=== PATIENT | male | born 1960 | race Caucasian/White ===

== ENCOUNTER 2019-08-11 13:29 | Emergency (ER) | payer OTHER ==
[~2019-08-11] VITALS: Ht 177.8 cm; Wt 74.8 kg
[~2019-08-11 13:29] MED LIST: HYDACE5 PO; METPRE4DP PO
[2019-08-11 14:51] LABS: BASOPHILS ABSOLUTE AUTO 0.01 K/mm3 (0.00-0.23); BASOPHILS PERCENT AUTO 0 % (0-2); EOSINOPHILS ABSOLUTE AUTO 0.11 K/mm3 (0.00-0.68); EOSINOPHILS PERCENT AUTO 2 % (0-6); Hematocrit 40.2 % (37.0-53.0); Hemoglobin 13.8 g/dL (13.5-17.5); IMMATURE GRAN ABSOLUTE AUTO 0.02 K/mm3 (0.00-0.10); IMMATURE GRAN PERCENT AUTO 0 % (0-1); LYMPHOCYTES ABSOLUTE AUTO 1.26 K/mm3 (0.84-5.20); LYMPHOCYTES PERCENT AUTO 19 % (21-46); MONOCYTES ABSOLUTE AUTO 0.88 K/mm3 (0.16-1.47); MONOCYTES PERCENT AUTO 13 % (4-13); Mean Corpuscular HGB 32.4 pg (26.0-34.0); Mean Corpuscular HGB Conc 34.3 g/dL (31.5-36.5); Mean Corpuscular Volume 94 fL (80-100); Mean Platelet Volume 10.7 fL (9.1-12.4); NEUTROPHILS ABSOLUTE AUTO 4.37 K/mm3 (1.96-9.15); NEUTROPHILS PERCENT AUTO 66 % (41-73); Platelet Count 218 K/mm3 (150-400); RDW Coefficient Variation 15.2 % (11.7-14.2); RDW Standard Deviation 52.4 fL (35.1-46.3); Red Blood Cell Count 4.26 M/mm3 (4.30-5.90); White Blood Cell Count 6.65 K/mm3 (4.00-11.30)
[2019-08-11 15:15] LABS: Alanine Aminotransfer (ALT/SGP 51 U/L (12-78); Albumin, Blood 3.2 g/dL (3.4-5.0); Alk Phos 107 U/L (50-136); Anion Gap 8 mmol/L (6-16); Aspartate Aminotrans (AST/SGOT 47 U/L (12-37); Bilirubin, Total 0.7 mg/dL (0.1-1.0); Blood Urea Nitrogen 13 mg/dL (8-24); Bun/Creatinine Ratio 16.5 (12.0-20.0); CO2, Blood 22 mmol/L (21-32); Calcium, Blood 8.5 mg/dL (8.5-10.1); Chloride, Blood 103 mmol/L (98-108); Creatinine, Blood 0.79 mg/dL (0.60-1.20); Globulin, Blood 3.3 g/dL (2.2-4.0); Glomerular Filtration Rate >60 (60-); Glucose, Blood 97 mg/dL (70-99); Sodium, Blood 133 mmol/L (136-145); Total Protein, Blood 6.5 g/dL (6.4-8.2); Troponin I 0.031 ng/mL (0.000-0.040)
[2019-08-11] MEDS ORDERED: Vibramycin100 MG PO (15:41)
[2019-08-11] MEDS ORDERED: Prednisone20 MG PO (15:41)
[2019-08-11] MEDS ORDERED: ALBU90OI INH (15:41)
== END 2019-08-11 15:47 | disposition home or self-care (01) ==
LOC: ER 13:29
PROVIDERS: Physician Assistant
DX: J18.9 Pneumonia, unspecified organism (principal); F17.200 Nicotine dependence, unspecified, uncomplicated
CPT/HCPCS: 71045; 80053; 83880; 84484; 85025; 93005; 93010; 94640; 99284-25; J7512

== ENCOUNTER 2019-08-21 15:45 | Inpatient (IN) | payer OTHER ==
[~2019-08-21] VITALS: Ht 177.8 cm; Wt 75.3 kg
[~2019-08-21 15:45] MED LIST changes: +ALBU90OI INH; +Prednisone20 MG PO; +Vibramycin100 MG PO
[2019-08-21 16:24] LABS: BASOPHILS ABSOLUTE AUTO 0.03 K/mm3 (0.00-0.23); BASOPHILS PERCENT AUTO 0 % (0-2); EOSINOPHILS ABSOLUTE AUTO 0.15 K/mm3 (0.00-0.68); EOSINOPHILS PERCENT AUTO 2 % (0-6); Hematocrit 45.2 % (37.0-53.0); Hemoglobin 15.1 g/dL (13.5-17.5); IMMATURE GRAN ABSOLUTE AUTO 0.05 K/mm3 (0.00-0.10); IMMATURE GRAN PERCENT AUTO 1 % (0-1); LYMPHOCYTES ABSOLUTE AUTO 1.64 K/mm3 (0.84-5.20); LYMPHOCYTES PERCENT AUTO 20 % (21-46); MONOCYTES ABSOLUTE AUTO 1.13 K/mm3 (0.16-1.47); MONOCYTES PERCENT AUTO 14 % (4-13); Mean Corpuscular HGB 32.2 pg (26.0-34.0); Mean Corpuscular HGB Conc 33.4 g/dL (31.5-36.5); Mean Corpuscular Volume 96 fL (80-100); Mean Platelet Volume 10.7 fL (9.1-12.4); NEUTROPHILS ABSOLUTE AUTO 5.24 K/mm3 (1.96-9.15); NEUTROPHILS PERCENT AUTO 64 % (41-73); Platelet Count 205 K/mm3 (150-400); RDW Coefficient Variation 15.6 % (11.7-14.2); RDW Standard Deviation 55.3 fL (35.1-46.3); Red Blood Cell Count 4.69 M/mm3 (4.30-5.90); White Blood Cell Count 8.24 K/mm3 (4.00-11.30)
[2019-08-21 16:47] LABS: Troponin I 0.027 ng/mL (0.000-0.040)
[2019-08-21 16:48] LABS: Alanine Aminotransfer (ALT/SGP 165 U/L (12-78); Albumin, Blood 3.1 g/dL (3.4-5.0); Alk Phos 102 U/L (50-136); Anion Gap 9 mmol/L (6-16); Aspartate Aminotrans (AST/SGOT 111 U/L (12-37); Bilirubin, Total 0.9 mg/dL (0.1-1.0); Blood Urea Nitrogen 16 mg/dL (8-24); Bun/Creatinine Ratio 15.8 (12.0-20.0); CO2, Blood 22 mmol/L (21-32); Calcium, Blood 8.4 mg/dL (8.5-10.1); Chloride, Blood 100 mmol/L (98-108); Creatinine, Blood 1.01 mg/dL (0.60-1.20); Globulin, Blood 3.2 g/dL (2.2-4.0); Glomerular Filtration Rate >60 (60-); Glucose, Blood 96 mg/dL (70-99); Potassium, Blood 4.7 mmol/L (3.5-5.5); Sodium, Blood 131 mmol/L (136-145); Total Protein, Blood 6.3 g/dL (6.4-8.2)
[2019-08-21 16:48] LABS: PCO2 Arterial 26.7 mmHg (35-45); PO2 Arterial 60.2 mmHg (80-100); pH Blood Arterial 7.45 (7.35-7.45)
--- NOTE | 2019-08-22 05:15 | NUR ---
SHIFT SUMMARY PT HAS BEEN A&O, VSS, O2 SATS >93% ON 3L O2 VIA NC. PT STATES SOB HAS IMPROVED SINCE ADMISSION. HE ALSO STATES HE WAS ABLE TO VOID 2 FULL URINALS IN THE ER AFTER RECIEVING LASIX BUT IT WAS NOT DOCUMENTED. LESS THAN 400 ML'S OF URINE NOTED SINCE ARRIVAL. PT IS DRINKING FLUIDS AND TOLERATING PO INTAKE.AMIODORONE GTT INFUSING PER EMAR AT THIS TIME, PT CONVERTED TO SINUS RHYTHM @ APPROX 2330 & THEN BACK TO AFIB @ 0415. PT IS ASYMPTOMATIC. PT IS NEGATIVE FOR CIWA AT THIS TIME. WCTM, CALL LIGHT IN REACH.
[2019-08-22 08:40] LABS: BASOPHILS ABSOLUTE AUTO 0.02 K/mm3 (0.00-0.23); BASOPHILS PERCENT AUTO 0 % (0-2); EOSINOPHILS ABSOLUTE AUTO 0.13 K/mm3 (0.00-0.68); EOSINOPHILS PERCENT AUTO 2 % (0-6); Hematocrit 45.7 % (37.0-53.0); IMMATURE GRAN ABSOLUTE AUTO 0.02 K/mm3 (0.00-0.10); IMMATURE GRAN PERCENT AUTO 0 % (0-1); LYMPHOCYTES ABSOLUTE AUTO 1.45 K/mm3 (0.84-5.20); LYMPHOCYTES PERCENT AUTO 20 % (21-46); MONOCYTES ABSOLUTE AUTO 0.96 K/mm3 (0.16-1.47); MONOCYTES PERCENT AUTO 13 % (4-13); Mean Corpuscular HGB 31.7 pg (26.0-34.0); Mean Corpuscular HGB Conc 32.8 g/dL (31.5-36.5); Mean Corpuscular Volume 97 fL (80-100); Mean Platelet Volume 11.1 fL (9.1-12.4); NEUTROPHILS ABSOLUTE AUTO 4.82 K/mm3 (1.96-9.15); NEUTROPHILS PERCENT AUTO 65 % (41-73); Platelet Count 210 K/mm3 (150-400); RDW Coefficient Variation 15.5 % (11.7-14.2); RDW Standard Deviation 54.9 fL (35.1-46.3); Red Blood Cell Count 4.73 M/mm3 (4.30-5.90)
[2019-08-22 08:41] LABS: Alanine Aminotransfer (ALT/SGP 136 U/L (12-78); Albumin, Blood 2.9 g/dL (3.4-5.0); Albumin/Globulin Ratio 0.9 (0.8-1.8); Alk Phos 90 U/L (50-136); Anion Gap 9 mmol/L (6-16); Aspartate Aminotrans (AST/SGOT 75 U/L (12-37); Bilirubin, Total 0.7 mg/dL (0.1-1.0); Blood Urea Nitrogen 20 mg/dL (8-24); Bun/Creatinine Ratio 17.2 (12.0-20.0); CO2, Blood 26 mmol/L (21-32); Calcium, Blood 8.9 mg/dL (8.5-10.1); Chloride, Blood 100 mmol/L (98-108); Creatinine, Blood 1.16 mg/dL (0.60-1.20); Globulin, Blood 3.1 g/dL (2.2-4.0); Glomerular Filtration Rate >60 (60-); Glucose, Blood 103 mg/dL (70-99); Potassium, Blood 4.3 mmol/L (3.5-5.5); Sodium, Blood 135 mmol/L (136-145); Troponin I 0.118 ng/mL (0.000-0.040)
[2019-08-22 15:06] LABS: International Normalized Ratio 1.19; Prothrombin Time Results 12.6 Sec (9.7-11.5)
--- NOTE | 2019-08-22 18:36 | NUR ---
SHIFT NOTE PT HAS BEEN RESTING WELL BED T/O THE DAY. PT WITH SOME NOTED SOB, STS THAT HIS SOB HAS IMPROVED SINCE ARRIVAL. SPO2 MID 90s T/O THE SHIFT ON 3L VIA CANNULA. PT DENIED CP T/O THE DAY. DR URIOSTEGUI HAS BEEN IN FOR [facility] CONSENT FOR HEART CENTER IS SIGNED AND IN CHART. PT HAS BEEN REMOVED FROM IV AMIODORONE REPLACED WITH PO. LOVENOX REPLACED WITH HEPARIN DRIP
--- NOTE | 2019-08-23 06:24 | NUR ---
SHIFT SUMMARY PT RESTING IN ROOM COMFORTABLY AT THIS TIME. NO ACUTE CHANGES IN STATUS T/O NIGHT. PT SLEPT WELL. DENIED CP OR SOB. PT DID REPOPRT SOME DYSPNEA W/ EXERTION WHEN STANDING TO USE URINAL. RESP EVEN UNLABORED ON 3L NC W/ SATS >92%. HEPARING GTT INFUSING PER PHARMACY. PT DENIED ALL OTHER NEEDS. CALL LIGHT IN REACH.
[2019-08-23 07:04] LABS: BASOPHILS ABSOLUTE AUTO 0.02 K/mm3 (0.00-0.23); BASOPHILS PERCENT AUTO 0 % (0-2); EOSINOPHILS ABSOLUTE AUTO 0.13 K/mm3 (0.00-0.68); EOSINOPHILS PERCENT AUTO 1 % (0-6); Hematocrit 44.7 % (37.0-53.0); Hemoglobin 14.5 g/dL (13.5-17.5); IMMATURE GRAN ABSOLUTE AUTO 0.04 K/mm3 (0.00-0.10); IMMATURE GRAN PERCENT AUTO 0 % (0-1); LYMPHOCYTES PERCENT AUTO 13 % (21-46); MONOCYTES ABSOLUTE AUTO 1.21 K/mm3 (0.16-1.47); MONOCYTES PERCENT AUTO 13 % (4-13); Mean Corpuscular HGB 31.5 pg (26.0-34.0); Mean Corpuscular HGB Conc 32.4 g/dL (31.5-36.5); Mean Corpuscular Volume 97 fL (80-100); Mean Platelet Volume 11.1 fL (9.1-12.4); NEUTROPHILS PERCENT AUTO 73 % (41-73); Platelet Count 167 K/mm3 (150-400); RDW Coefficient Variation 15.7 % (11.7-14.2); RDW Standard Deviation 55.4 fL (35.1-46.3)
[2019-08-23 07:17] LABS: Alanine Aminotransfer (ALT/SGP 123 U/L (12-78); Albumin, Blood 2.7 g/dL (3.4-5.0); Albumin/Globulin Ratio 0.8 (0.8-1.8); Alk Phos 82 U/L (50-136); Anion Gap 9 mmol/L (6-16); Aspartate Aminotrans (AST/SGOT 58 U/L (12-37); Bilirubin, Total 0.7 mg/dL (0.1-1.0); Blood Urea Nitrogen 23 mg/dL (8-24); Bun/Creatinine Ratio 20.4 (12.0-20.0); CO2, Blood 26 mmol/L (21-32); Calcium, Blood 8.6 mg/dL (8.5-10.1); Chloride, Blood 100 mmol/L (98-108); Creatinine, Blood 1.13 mg/dL (0.60-1.20); Globulin, Blood 3.4 g/dL (2.2-4.0); Glomerular Filtration Rate >60 (60-); Glucose, Blood 107 mg/dL (70-99); Potassium, Blood 3.5 mmol/L (3.5-5.5); Sodium, Blood 135 mmol/L (136-145); Total Protein, Blood 6.1 g/dL (6.4-8.2)
--- NOTE | 2019-08-23 07:28 | NUR ---
ASSUMED PATIENT CARE. PATIENT RESTING COMFORTABLY IN BED, CONVERSING WITH NURSING STAFF. NO SIGNS OF ACUTE DISTRESS, WCTM.
--- NOTE | 2019-08-23 12:50 | NUR ---
PATIENT HAD TWO RUNS OF V TACH THIS AM, DR. MADDEN NOTIFIED.
--- NOTE | 2019-08-23 17:54 | NUR ---
PATIENT HAD TWO RUNS OF 8 BEAT V TACH AT BEGINNIG OF SHIFT. PATIENT COMPLAINED OF MILD CHEST TIGHTNESS IN UPPER L. QUADRANT. PATIENT WAS ABLE TO AMBULATE TO SHOWER TODAY, DID NOT COMPLAIN OF INCREASED SOB, BUT ENDORSED NEEDING THE O2, WHICH HE HAS RECIEVED VIA NASAL CANNULA AT 2 L. PATIENT REMAINED ON HEPARIN DRIP THIS SHIFT. COVID-19 TEST RESULTS PENDING. PLAN IS TO CONTINUE TO DIURESE PATIENT WITH IV LASIX, AND FOR ANGIO POSSIBLY TOMORROW.
--- NOTE | 2019-08-24 05:22 | NUR ---
SHIFT SUMMARY PT SLEEPING IN ROOM COMFORTABLY AT THIS TIME. NO ACUTE CHANGES IN STATUS T/O NIGHT. PT SLEPT WELL DENIED NEEDS. RESP EVEN UNLABORED ON 2L NC W/ SATS >92%. PT WAS HYPOTENSIVE DURING NIGHT, W/ MAP REMAINED ABOVE 50. PT HAS BEEN DIURESING IN PPREARATION FOR ANGIO. PT WAS MADE NPO AT MIDNIGHT FOR POSSIBLE ANGIO THIS AM. DENIED OTHER NEEDS. CALL LIGHT IN REACH.
[2019-08-24 05:35] LABS: BASOPHILS ABSOLUTE AUTO 0.02 K/mm3 (0.00-0.23); BASOPHILS PERCENT AUTO 0 % (0-2); EOSINOPHILS ABSOLUTE AUTO 0.16 K/mm3 (0.00-0.68); EOSINOPHILS PERCENT AUTO 2 % (0-6); Hematocrit 41.9 % (37.0-53.0); Hemoglobin 13.9 g/dL (13.5-17.5); IMMATURE GRAN ABSOLUTE AUTO 0.03 K/mm3 (0.00-0.10); IMMATURE GRAN PERCENT AUTO 0 % (0-1); LYMPHOCYTES ABSOLUTE AUTO 1.26 K/mm3 (0.84-5.20); LYMPHOCYTES PERCENT AUTO 18 % (21-46); MONOCYTES ABSOLUTE AUTO 1.02 K/mm3 (0.16-1.47); MONOCYTES PERCENT AUTO 14 % (4-13); Mean Corpuscular HGB 31.8 pg (26.0-34.0); Mean Corpuscular HGB Conc 33.2 g/dL (31.5-36.5); Mean Corpuscular Volume 96 fL (80-100); Mean Platelet Volume 11.1 fL (9.1-12.4); NEUTROPHILS ABSOLUTE AUTO 4.65 K/mm3 (1.96-9.15); NEUTROPHILS PERCENT AUTO 65 % (41-73); Platelet Count 159 K/mm3 (150-400); RDW Coefficient Variation 15.4 % (11.7-14.2); RDW Standard Deviation 54.6 fL (35.1-46.3); Red Blood Cell Count 4.37 M/mm3 (4.30-5.90); White Blood Cell Count 7.14 K/mm3 (4.00-11.30)
[2019-08-24 05:53] LABS: Alanine Aminotransfer (ALT/SGP 92 U/L (12-78); Albumin, Blood 2.6 g/dL (3.4-5.0); Albumin/Globulin Ratio 0.8 (0.8-1.8); Alk Phos 69 U/L (50-136); Anion Gap 7 mmol/L (6-16); Aspartate Aminotrans (AST/SGOT 39 U/L (12-37); Bilirubin, Total 0.7 mg/dL (0.1-1.0); Blood Urea Nitrogen 20 mg/dL (8-24); Bun/Creatinine Ratio 20.2 (12.0-20.0); CO2, Blood 28 mmol/L (21-32); Calcium, Blood 8.5 mg/dL (8.5-10.1); Chloride, Blood 98 mmol/L (98-108); Creatinine, Blood 0.99 mg/dL (0.60-1.20); Globulin, Blood 3.1 g/dL (2.2-4.0); Glomerular Filtration Rate >60 (60-); Glucose, Blood 106 mg/dL (70-99); Potassium, Blood 3.3 mmol/L (3.5-5.5); Sodium, Blood 133 mmol/L (136-145); Total Protein, Blood 5.7 g/dL (6.4-8.2)
--- NOTE | 2019-08-24 13:57 | NUR ---
PCU DAYSHIFT NOTE PATIENT ALERT AND ORIENTED X4. INDEPENDENT IN ROOM. RESP E/U AT REST ON 2 LPM NC. PATIENT AMBULATES WITH STEADY GAIT TO BATHROOM. DENIES ANY PAIN T/O SHIFT. LUNG SOUNDS CLEAR WITH MILD EXP WHEEZE IN BASES. REMAINS NSR WITH NO CARDIAC EVENTS NOTED AT THIS TIME. COVID REMAINS PENDING. REPORTED TO KEYA Pace RN. CALL LIGHT W/I REACH.
--- NOTE | 2019-08-24 18:02 | NUR ---
SHIFT SUMMARY PT ASSESSMENT UNCHANGED SINCE REPORT FROM VENKATA BELL. PT A&OX 4. INDEPENDENT IN ROOM. CONTINUING TO DIUERSIS. DISCUSSED kathy URIOSTEGUI. PT HAS CRACKLES THROUGHOUT. STATES HE CANNOT LAY FLAT c SOB AND INCREASED COUGHING. O2 SATS >95% ON 1L. HEPARIN INFUSING AT 19 UNITS/KG/HR. PLAN FOR PROCEDURE TOMORROW, NPO AND HEPARIN D/C AFTER MIDNIGHT. WILL CONTINUE TO MONITOR UNTIL REPORT TO ONCOMING NURSE.
--- NOTE | 2019-08-25 00:05 | NUR ---
LYING IN LOW FOWLERS, RESTING WITH EYES CLOSED. VSS, HEPARIN GTT STOPPED PER MD ORDERS. PT IS NOW NPO FOR LHC IN AM. DENIES PAIN, DISCOMFORT, OR OTHER NEEDS AT THIS TIME. SAFETY MEASURES IN PLACE. WILL CONTINUE TO MONITOR.
[2019-08-25 04:31] LABS: BASOPHILS ABSOLUTE AUTO 0.03 K/mm3 (0.00-0.23); BASOPHILS PERCENT AUTO 0 % (0-2); EOSINOPHILS ABSOLUTE AUTO 0.15 K/mm3 (0.00-0.68); EOSINOPHILS PERCENT AUTO 2 % (0-6); Hematocrit 40.4 % (37.0-53.0); Hemoglobin 13.4 g/dL (13.5-17.5); IMMATURE GRAN ABSOLUTE AUTO 0.03 K/mm3 (0.00-0.10); IMMATURE GRAN PERCENT AUTO 0 % (0-1); LYMPHOCYTES ABSOLUTE AUTO 1.09 K/mm3 (0.84-5.20); LYMPHOCYTES PERCENT AUTO 16 % (21-46); MONOCYTES ABSOLUTE AUTO 0.89 K/mm3 (0.16-1.47); MONOCYTES PERCENT AUTO 13 % (4-13); Mean Corpuscular HGB Conc 33.2 g/dL (31.5-36.5); Mean Corpuscular Volume 96 fL (80-100); Mean Platelet Volume 11.4 fL (9.1-12.4); NEUTROPHILS ABSOLUTE AUTO 4.56 K/mm3 (1.96-9.15); NEUTROPHILS PERCENT AUTO 68 % (41-73); Platelet Count 156 K/mm3 (150-400); RDW Coefficient Variation 15.5 % (11.7-14.2); RDW Standard Deviation 55.5 fL (35.1-46.3); Red Blood Cell Count 4.19 M/mm3 (4.30-5.90); White Blood Cell Count 6.75 K/mm3 (4.00-11.30)
[2019-08-25 04:54] LABS: Alanine Aminotransfer (ALT/SGP 83 U/L (12-78); Albumin, Blood 2.7 g/dL (3.4-5.0); Albumin/Globulin Ratio 0.8 (0.8-1.8); Alk Phos 69 U/L (50-136); Anion Gap 7 mmol/L (6-16); Aspartate Aminotrans (AST/SGOT 33 U/L (12-37); Bilirubin, Total 0.5 mg/dL (0.1-1.0); Blood Urea Nitrogen 23 mg/dL (8-24); Bun/Creatinine Ratio 23.3 (12.0-20.0); CO2, Blood 28 mmol/L (21-32); Calcium, Blood 8.5 mg/dL (8.5-10.1); Chloride, Blood 96 mmol/L (98-108); Creatinine, Blood 0.99 mg/dL (0.60-1.20); Globulin, Blood 3.4 g/dL (2.2-4.0); Glomerular Filtration Rate >60 (60-); Glucose, Blood 106 mg/dL (70-99); Sodium, Blood 131 mmol/L (136-145); Total Protein, Blood 6.1 g/dL (6.4-8.2)
--- NOTE | 2019-08-25 07:30 | NUR ---
ASSUMED CARE AT 0730. RESTING IN HIGH FOWLERS IN BED. A/A/OX4. 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 VSS, WILL CONTINUE TO MONITOR.
[2019-08-25 13:39] LABS: Test Name COVID19
--- NOTE | 2019-08-25 17:50 | NUR ---
SHIFT SUMMARY: A/A/OX4 THROUGHOUT SHIFT, INDEPENDANT IN ROOM. 1L 02 VIA NC. TAKEN TO LEAD DATA ENTRY OPERATOR AT APPROX 1700, REMAINS IN LEAD DATA ENTRY OPERATOR AT THIS TIME.
--- NOTE | 2019-08-26 04:11 | NUR ---
SHIFT SUMMARY: PATIENT VERY INTENT ON GETTING SNACKS THIS SHIFT, FOOD AND WATER HELD SINCE 0320 FOR POSSIBLE ANDRES THIS AM. PATIENT SKIN C/D/I, VSS, MOVING WITH ONLY MINIMAL SBA. PATIENT REMAINS IN A SINUS RHYTHUM. PATIENT TR BAND FULLY RECOVERED AT APPROX 2300 WITH NO SIGN OF HEMATOMA OR BLEEDING. ON EVERY CHECK ALL SENSATIONS WERE INTACT, CAPILLARY REFILL < 3 SECONDS, PULSES STRONG AND SKIN COLOR WNL. PATIENT SLEPT WELL. BED LOW AND LOCKED, CALL LIGHT WITHIN REACH AND PATIENT MONITORED CLOSELY.
--- NOTE | 2019-08-26 09:00 | NUR ---
ANDRES CONSENT SIGNED. TIME OUT PERFORMED AT 0845. VS STABLE. BP CYCLED Q3MIN. 1MG OF VERSED AND 25MCG OF FENTANYL GIVEN AT APPROXIMATELY 0847. PROBE IN AT 0850 AND OUT AT 0859. PT TOLERATED PROCEDURE WELL.
[2019-08-26 09:45] LABS: Result NEGATIVE
[2019-08-26] MEDS ORDERED: Pacerone400 MG PO (12:20)
[2019-08-26] MEDS ORDERED: METO25ER PO (12:21)
[2019-08-26] MEDS ORDERED: ELIQUIS5 M2 PO (12:22)
[2019-08-26] MEDS ORDERED: Aspirin EC81 MG PO (12:22)
[2019-08-26] MEDS ORDERED: FURO20 PO (12:23)
[2019-08-26] MEDS ORDERED: SPIR25 PO (12:23)
[2019-08-26] MEDS ORDERED: LISI5 PO (12:23)
--- NOTE | 2019-08-26 14:25 | NUR ---
PCU DISCHARGE SUMMARY PATIENT REMAINED ALERT AND ORIENTED X4 T/O SHIFT. PATIENT DENIED ANY PAIN T/O SHIFT. ANDRES PERFORMED. PATIENT TO HAVE OUTPATIENT SURGERY FOR MITRAL VALVE REPAIR. PATIENT HAD HOME O2 EVALUATION COMPLETED AND REQUIRES OXYGEN - O2 SET UP VIA PORTABLE AND AT HIS HOME BY STUART MARQUES PER MARKETING AND COMMUNICATIONS OFFICER, ASHIA Chaudhari PATIENT LEFT UNIT VIA WHEELCHAIR HOME WITH FRIEND IN NO ACUTE DISTRESS. VERBALIZED UNDERSTANDING OF MEDICATIONS AND FOLLOW UP APPT WITH [facility]. BELONGINGS SENT WITH PATIENT.
== END 2019-08-26 14:12 | disposition home or self-care (01) | DRG 280 ==
LOC: ER 15:45 → ICUW 19:43 → PCU 19:43
PROVIDERS: Anesthesiology; Emergency Medicine; Internal Medicine; Physician Assistant; ADMIT Internal Medicine
PROC: 4A023N8 Measurement of Cardiac Sampling and Pressure, Bilateral, Percutaneous Approach (ICD-10-PCS; principal; 2019-08-25)
PROC: B2111ZZ Fluoroscopy of Multiple Coronary Arteries using Low Osmolar Contrast (ICD-10-PCS; 2019-08-25)
PROC: B240ZZ3 Ultrasonography of Single Coronary Artery, Intravascular (ICD-10-PCS; 2019-08-25)
DX: I11.0 Hypertensive heart disease with heart failure (principal); I21.4 Non-ST elevation (NSTEMI) myocardial infarction; J96.01 Acute respiratory failure with hypoxia; E87.6 Hypokalemia; I34.1 Nonrheumatic mitral (valve) prolapse; I34.0 Nonrheumatic mitral (valve) insufficiency; I27.22 Pulmonary hypertension due to left heart disease; I50.9 Heart failure, unspecified; F17.210 Nicotine dependence, cigarettes, uncomplicated; J44.9 Chronic obstructive pulmonary disease, unspecified; I25.10 Atherosclerotic heart disease of native coronary artery without angina pectoris; F10.20 Alcohol dependence, uncomplicated; I48.0 Paroxysmal atrial fibrillation
CPT/HCPCS: 36415; 36600; 71045; 76376; 76705; 80053; 82803; 82947; 83605; 83735; 83880; 84443; 84484; 85025; 85347; 85610; 85730; 86850; 86900; 86901; 87040; 92978; 93005; 93010; 93312; 93325; 93460; 93571; 94761; 94762; 96365; 96375; 99152; 99153; 99285-25; A9270; A9270-GY; C1753; C1769; C1887; C1894; J0282; J1644; J1650; J1940; J2250; J3010; J7030; J7060; Q9967; U0002; U0003

== ENCOUNTER 2019-08-29 11:02 | Inpatient (IN) | payer OTHER ==
[~2019-08-29] VITALS: Ht 177.8 cm; Wt 80.8 kg
[~2019-08-29 11:02] MED LIST changes: +Aspirin EC81 MG PO; +ELIQUIS5 M2 PO; +FURO20 PO; +LISI5 PO; +METO25ER PO; +Pacerone400 MG PO; +SPIR25 PO
[2019-08-29 11:42] LABS: BASOPHILS ABSOLUTE AUTO 0.03 K/mm3 (0.00-0.23); BASOPHILS PERCENT AUTO 0 % (0-2); EOSINOPHILS ABSOLUTE AUTO 0.13 K/mm3 (0.00-0.68); EOSINOPHILS PERCENT AUTO 2 % (0-6); Hematocrit 40.5 % (37.0-53.0); Hemoglobin 13.7 g/dL (13.5-17.5); IMMATURE GRAN ABSOLUTE AUTO 0.08 K/mm3 (0.00-0.10); IMMATURE GRAN PERCENT AUTO 1 % (0-1); LYMPHOCYTES ABSOLUTE AUTO 1.44 K/mm3 (0.84-5.20); LYMPHOCYTES PERCENT AUTO 17 % (21-46); MONOCYTES ABSOLUTE AUTO 0.96 K/mm3 (0.16-1.47); MONOCYTES PERCENT AUTO 11 % (4-13); Mean Corpuscular HGB 32.2 pg (26.0-34.0); Mean Corpuscular HGB Conc 33.8 g/dL (31.5-36.5); Mean Corpuscular Volume 95 fL (80-100); NEUTROPHILS ABSOLUTE AUTO 5.98 K/mm3 (1.96-9.15); NEUTROPHILS PERCENT AUTO 70 % (41-73); Platelet Count 198 K/mm3 (150-400); RDW Coefficient Variation 14.6 % (11.7-14.2); RDW Standard Deviation 51.1 fL (35.1-46.3); Red Blood Cell Count 4.26 M/mm3 (4.30-5.90); White Blood Cell Count 8.62 K/mm3 (4.00-11.30)
[2019-08-29 12:06] LABS: Albumin, Blood 2.9 g/dL (3.4-5.0); Albumin/Globulin Ratio 0.9 (0.8-1.8); Bun/Creatinine Ratio 32.6 (12.0-20.0); Calcium, Blood 8.5 mg/dL (8.5-10.1); Creatinine, Blood 1.38 mg/dL (0.60-1.20); Globulin, Blood 3.4 g/dL (2.2-4.0); Potassium, Blood 5.7 mmol/L (3.5-5.5); Total Protein, Blood 6.3 g/dL (6.4-8.2); Troponin I 0.043 ng/mL (0.000-0.040)
--- NOTE | 2019-08-29 17:00 | NUR ---
PT ARRIVED TO PCU VIA GURNEY FROM ED REPORT OBTAINED, PT ABLE TO STAND AND TRANSFER SELF TO BED, A/OX3, COOPERATIVE WITH CARE, FOLLOWS COMMANDS WELL, DENIES PAIN, BUT DOES REPORT SOB, REPORTS VOMITING FOR TWO DAYS, NO KEEPING ANYTHING DOWN, LUNGS ARE CLEAR IN UPPER CARCAMO, DIM IN BASES, RESP EVEN AND MILDLY LABORED, CURRENTLY ON 4 LITERS 02 VIA N/C, THIS IS HIS HOME 02 DOSE, OCC PRODUCTIVE COUGH OF WHITE SPUTUM, HE IS A SMOKER, BUT STATES HE HASN'T SMOKED IN TWO WEEKS, REPORTS THE SOB IS WORSE WITH EXERTION, HRR, TELE IN PLACE RUNNIG SR PER MONITOR, SEE STRIP, NO EDEMA NOTED, PPP+1, CAP REFILL >3SEC, VS STABLE AFEBRILE, IV SITE TO LF S.L. AT THIS TIME, IS RESISTANT TO FLUSH, AND IS STINGING, BTX4, ABD FLAT SOFT NONTENDER, VOIDS WITHOUT DIFF, SKIN C/W/D, MAEW, ANILA, ORIENTED TO ROOM LAYOUT, CALL SYSTEM, CALL LIGHT IN REACH.
--- NOTE | 2019-08-29 18:47 | NUR ---
IV TO LEFT FA WAS STINGING WHEN FLUSHED, THIS WAS REMOVED INTACT, 20G PLACED TO RIGHT FA, FLUSHES, WELL. NO ACUTE CHANGES IN PT. CALL LIGHT IN REACH.
--- NOTE | 2019-08-30 06:03 | NUR ---
PATIENT HAS BEEN ABLE TO SLEEP FOR SHORT PERIODS OF TIME, WAKES EASILY TO VERBAL STIM. PATIENT UP AT BEDSIDE TO VOID. BECOMES DYSPNIC WITH ANY EXERTION. PT CONT WITH NAUSEA, ABDOMINAL DISCOMFORT, NO VOMITNG. ZOFRAN IV GIVEN FOR NAUSEA THIS AM. NO ACUTE CHANGES. PT STATES THAT HE DOES FEEL BETTER THAT YESTERDAY. CALL LIGHT IN REACH.
[2019-08-30 06:08] LABS: BASOPHILS ABSOLUTE AUTO 0.03 K/mm3 (0.00-0.23); BASOPHILS PERCENT AUTO 0 % (0-2); EOSINOPHILS ABSOLUTE AUTO 0.21 K/mm3 (0.00-0.68); EOSINOPHILS PERCENT AUTO 3 % (0-6); Hematocrit 40.4 % (37.0-53.0); Hemoglobin 13.4 g/dL (13.5-17.5); IMMATURE GRAN ABSOLUTE AUTO 0.03 K/mm3 (0.00-0.10); IMMATURE GRAN PERCENT AUTO 0 % (0-1); LYMPHOCYTES ABSOLUTE AUTO 1.36 K/mm3 (0.84-5.20); LYMPHOCYTES PERCENT AUTO 19 % (21-46); MONOCYTES ABSOLUTE AUTO 0.88 K/mm3 (0.16-1.47); MONOCYTES PERCENT AUTO 12 % (4-13); Mean Corpuscular HGB 31.4 pg (26.0-34.0); Mean Corpuscular HGB Conc 33.2 g/dL (31.5-36.5); Mean Corpuscular Volume 95 fL (80-100); Mean Platelet Volume 11.2 fL (9.1-12.4); NEUTROPHILS ABSOLUTE AUTO 4.77 K/mm3 (1.96-9.15); NEUTROPHILS PERCENT AUTO 66 % (41-73); Platelet Count 202 K/mm3 (150-400); RDW Coefficient Variation 14.5 % (11.7-14.2); RDW Standard Deviation 51.1 fL (35.1-46.3); Red Blood Cell Count 4.27 M/mm3 (4.30-5.90); White Blood Cell Count 7.28 K/mm3 (4.00-11.30)
[2019-08-30 06:20] LABS: Albumin, Blood 2.8 g/dL (3.4-5.0); Albumin/Globulin Ratio 0.9 (0.8-1.8); Bilirubin, Total 0.6 mg/dL (0.1-1.0); Bun/Creatinine Ratio 29.6 (12.0-20.0); Calcium, Blood 7.9 mg/dL (8.5-10.1); Creatinine, Blood 1.35 mg/dL (0.60-1.20); Globulin, Blood 3.2 g/dL (2.2-4.0); Potassium, Blood 4.8 mmol/L (3.5-5.5); Troponin I 0.033 ng/mL (0.000-0.040)
--- NOTE | 2019-08-30 18:29 | NUR ---
SHIFT SUMMARY: PT IS ALERT AND ORIENTED ABLE TO MAKE NEEDS KNOWN. CONTINUES ON DIURESIS, LASIX 40MG BID, 1800 DOSE ON HOLD D/T LOW BP, PT'S BP AT 80'S-90'S PER SYSTOLIC LAST BP WAS 89/55, DR LI CALLED AND MADE AWARE AGREED TO HOLD LASIX TONIGHT, RECOMMEND TO GET A FOLLOW-UP CARDIOLOGY CONSULT IN AM IN REGARGDS TO TAVR PROCEDURE THAT NEEDS TO GET DONE MEGAN. PT STILL ON FLUID RESTRICTION 2L/DAY, NO IV FLUID RUNNING AT THIS TIME, ADEQUATE PO FLUID INTAKE PER RESTRICTION. PT STILL C/O NAUSEA X1 THIS AM, ZOFRAN GIVEN AND WAS EFFECTIVE. PT ASYMPTOMATIC FOR LOW BP, PT STATED HE STOOD UP AND WALK TO THE WINDOW WITHOUT ANY ISSUES, PT ALSO EDUCATE ABOUT SAFETY AND FALL PREVENTION. USES URINAL TO VOID. NO OTHER ISSUES REPORTED. WILL GIVE REPORT TO ONCOMING SHIFT.
--- NOTE | 2019-08-30 20:08 | NUR ---
PATIENT ALERT AND ENGAGED WITH CONVERSATION. O2 @ 4 L, NO SOB OR INCREASED WOB WHILE IN BED. STATES INCREASED PRESSURE IN ABDOMEN SINCE ABOUT 1900, DENIES NAUSEA. BP 84/54 WITH MAP 63. HR 64. CALL LIGHT IN REACH.
[2019-08-31 04:20] LABS: Calcium, Blood 8.1 mg/dL (8.5-10.1); Creatinine, Blood 1.58 mg/dL (0.60-1.20); Magnesium, Blood 2.5 mg/dL (1.6-2.4); Potassium, Blood 4.7 mmol/L (3.5-5.5)
--- NOTE | 2019-08-31 06:33 | NUR ---
PATIENT HAS TIMES WHERE HE IS HAVING MORE DISCOMFORT IN HIS ABDOMEN. THIS MORNING HE IS FEELING BETTER. HE DID GO FOR A SHORT WALK IN THE [place] WITH O2. NO ACUTE CHANGES THIS SHIFT. CALL LIGHT IN REACH.
--- NOTE | 2019-08-31 13:27 | NUR ---
PT WAS SEEN BY DR TEJADA TODAY FOR CARDIOLOGISTS FOLLOW-UP, PT TO CONTINUE DIURESIS OKAY TO HOLD OFF ON BLOOD PRESSURE MEDICATIONS DUE TO LOW BP, PT NAUSEA RELIEVED, NOW C/O ABDOMINAL GAS PAIN/PRESSURE AND DIFFICULTY HAVING A BOWEL MOVEMENT/PASSING FLATUS, ISSUE ADDRESSED TO PROVIDER NEW ORDER RECEIVED FOR [place] BID, PT ALSO TRIED PRUNE JUICE SMALL BOWEL REPORTED FOR THE SHIFT. LIVER AKILAH DONE DUE TO ELEVATED LFTS, AWAITING FOR RESULT. PT STILL HAS SOB WITH EXERTION 98% ON 4L OF 02. PT CONTINUES ON FLUID RESTRICTION 2L/DAY. NO OTHER COMPLAINS, ONGOING PLAN FOR TAVR PROCEDURE. WILL MONITOR
--- NOTE | 2019-08-31 18:34 | NUR ---
SHIFT SUMMARY: (SEE PREVIOUS NOTES) PT FINALLY HAD MEDIUM BM AFTER 2ND DOSE OF MOM, PT WAS SLIGHTLY RELIEVED FROM ABDOMINAL GAS PAIN/PRESSURE, PT STATED THAT HE MIGHT NEED TO GO MORE LATER HE IS STILL PASSING FLATUS. PT AMBULATED IN THE UNIT EARLIER TO PROMOTE GAS MOVEMENT, PT TOLERATED WELL. PT CURRENTLY RESTING IN BED CALL LIGHTS WITHIN REACH WILL MONITOR.
[2019-09-01 04:28] LABS: Alanine Aminotransfer (ALT/SGP 358 U/L (12-78); Albumin, Blood 2.8 g/dL (3.4-5.0); Albumin/Globulin Ratio 0.9 (0.8-1.8); Alk Phos 96 U/L (50-136); Anion Gap 8 mmol/L (6-16); Aspartate Aminotrans (AST/SGOT 136 U/L (12-37); Bilirubin, Total 0.6 mg/dL (0.1-1.0); Blood Urea Nitrogen 35 mg/dL (8-24); Bun/Creatinine Ratio 32.4 (12.0-20.0); CO2, Blood 26 mmol/L (21-32); Calcium, Blood 7.8 mg/dL (8.5-10.1); Chloride, Blood 96 mmol/L (98-108); Creatinine, Blood 1.08 mg/dL (0.60-1.20); Globulin, Blood 3.2 g/dL (2.2-4.0); Glomerular Filtration Rate >60 (60-); Glucose, Blood 115 mg/dL (70-99); Sodium, Blood 130 mmol/L (136-145)
--- NOTE | 2019-09-01 06:40 | NUR ---
Shift Summary VSS, little sleep tonight, independant to bathroom for BM or up at bedside for urinal use. Fluid restriction in place. no changes to oxygen demand. 4L NC. VSS. No acute changes overnight, no changes from initial assessment. Will continue to monitor.
[2019-09-01 07:08] LABS: HBSAG SCREEN Negative (Negative); HEP A AB, IGM Negative (Negative); HEP B CORE AB, IGM Negative (Negative); HEP C VIRUS AB <0.1 (0.0-0.9)
--- NOTE | 2019-09-01 11:04 | NUR ---
UPDATE PT ALERT AND ORIENTED. VS STABLE. O2 SATS REMAIN ABOVE 90% 4L NC. BP STABLE. HR NSR. PT DENIES ANY PAIN. DR. SALDANA IN [facility] PLANS TO TRANSFER TO MEDICAL FLOOR. REPORT CALLED TO MEDICAL FLOOR RN. PT TO BE TAKEN UP BY .
--- NOTE | 2019-09-01 19:15 | NUR ---
SHIFT SUMMARY: PATIENT XFR FROM PCU-05 THIS SHIFT. PT A&O; CALM AND COOPERATIVE WITH CARE; INDEPENDENT IN ROOM. TELE IN PLACE; SR @ 72 PER MINING SUPPORT WORKER. FLUID RESTRICTION: 2000ML/DAY; PT COMPLIANT. IV DIURESIS CONTINUING. EXPECTED D/C HOME 09/01. REPORT GIVEN TO ONCOMING RN.
--- NOTE | 2019-09-02 04:53 | NUR ---
SHIFT SUMMARY ADMITTED FOR CHF. FULL CODE. HOPEFUL FOR DC TODAY OR TOMORROW. MITRAL VALVE TO BE REPLACED AT [facility] August OR . HE IS INDEPENDENT IN ROOM, A&O X4, ON A CARDIAC DIET, 2000 ML/DAY FLUID RESTRICTION.
[2019-09-02 05:44] LABS: Anion Gap 8 mmol/L (6-16); Blood Urea Nitrogen 29 mg/dL (8-24); Bun/Creatinine Ratio 24.2 (12.0-20.0); CO2, Blood 27 mmol/L (21-32); Calcium, Blood 7.8 mg/dL (8.5-10.1); Chloride, Blood 94 mmol/L (98-108); Glomerular Filtration Rate >60 (60-); Glucose, Blood 109 mg/dL (70-99); Magnesium, Blood 2.5 mg/dL (1.6-2.4); Potassium, Blood 4.2 mmol/L (3.5-5.5); Sodium, Blood 129 mmol/L (136-145)
--- NOTE | 2019-09-02 15:26 | NUR ---
Initial spiritual care note: Mr. Lozada was pleasantly dismissive of pastoral care at this time. Advised I would remain available.
--- NOTE | 2019-09-02 18:43 | NUR ---
SHIFT SUMMARY: NO ACUTE CHANGES TO REPORT THIS SHIFT. PT A&O; CALM AND COOPERATIVE WITH CARE; INDEPENDENT IN ROOM. SOB c EXERTION R/T CHF & MITRAL VALVE PROLAPSE; SURGERY PLANNED AT [facility]. TELE IN PLACE; SR @ 74 PER PLAIN GOODS HEMMER. DIURETICS CONTINUING. WCTM.
--- NOTE | 2019-09-03 04:43 | NUR ---
SHIFT SUMMARY ADMITTED FOR CHF. FULL CODE. MAY DC TODAY OR TOMORROW. NEEDS MITRAL VALVE REPLACED (PLAN FOR [facility] SE[facility]BER 08 OR ). HE IS ON 4 LPM O2 VIA NC, INDEPENDENT IN ROOM, CARDIAC DIET, A&O X4, 2000 ML FLUID RESTRICTION. WITH BOWEL CARE, MEDIUM BM THIS SHIFT. TELEMETRY: NSR @ 71 BPM. OF CONCERN: ONE 12 BEAT RUN OF VTACH THIS SHIFT. CHARGE NURSE INFORMED, SHE INSTRUCTED ME TO CALL HOSPITALIST IF SECOND RUN OF VTACH OCCURS. I DID NOTE THAT SCHEDULED METOPROLOL AND LISINOPRIL WERE HELD YESTERDAY MORNING. WILL CONTINUE TO MONITOR. AGAIN, HE DID NOT SLEEP WELL THIS SHIFT. HE DID TAKE SHORT NAPS. WILL CONTINUE TO MONITOR.
[2019-09-03 05:13] LABS: Anion Gap 8 mmol/L (6-16); Blood Urea Nitrogen 29 mg/dL (8-24); CO2, Blood 28 mmol/L (21-32); Calcium, Blood 8.5 mg/dL (8.5-10.1); Chloride, Blood 91 mmol/L (98-108); Creatinine, Blood 1.21 mg/dL (0.60-1.20); Glomerular Filtration Rate >60 (60-); Glucose, Blood 104 mg/dL (70-99); Potassium, Blood 4.8 mmol/L (3.5-5.5); Sodium, Blood 127 mmol/L (136-145)
--- NOTE | 2019-09-03 07:14 | NUR ---
ASSUMED PATIENT CARE. PATIENT RESTING COMFORTABLY IN BED, CONVERSING WITH NURSING STAFF. NO SIGNS OF ACUTE DISTRESS, WCTM.
[2019-09-03 15:14] LABS: Anion Gap 6 mmol/L (6-16); Blood Urea Nitrogen 27 mg/dL (8-24); Bun/Creatinine Ratio 24.1 (12.0-20.0); CO2, Blood 30 mmol/L (21-32); Chloride, Blood 93 mmol/L (98-108); Creatinine, Blood 1.12 mg/dL (0.60-1.20); Glomerular Filtration Rate >60 (60-); Glucose, Blood 111 mg/dL (70-99); Potassium, Blood 4.5 mmol/L (3.5-5.5); Sodium, Blood 129 mmol/L (136-145)
--- NOTE | 2019-09-03 17:25 | NUR ---
NO ACUTE EVENTS THIS SHIFT. VSS, PATIENT DENIED CHEST PAIN/PRESSURE THROUGH THIS SHIFT. PATIENT CONTINUED TO BE INDEPENDENT IN ROOM, HOWEVER SOB CONTINUES WITH EXERTION. ON 4 L NASAL CANNULA. TENTATIVE PLAN IS FOR PATIENT TO DISCHARGE TOMORROW AND FOLLOW UP WITH CT SURGERY AT [facility] FROM OUTPATIENT.
--- NOTE | 2019-09-03 19:05 | NUR ---
RELINQUISHED PATIENT CARE.
[2019-09-04 05:13] LABS: Anion Gap 7 mmol/L (6-16); Blood Urea Nitrogen 29 mg/dL (8-24); Bun/Creatinine Ratio 22.8 (12.0-20.0); CO2, Blood 29 mmol/L (21-32); Chloride, Blood 93 mmol/L (98-108); Creatinine, Blood 1.27 mg/dL (0.60-1.20); Glomerular Filtration Rate >60 (60-); Glucose, Blood 101 mg/dL (70-99); Potassium, Blood 4.4 mmol/L (3.5-5.5); Sodium, Blood 129 mmol/L (136-145)
--- NOTE | 2019-09-04 08:10 | NUR ---
ORAL SURGERY TECHNICIAN SUMMARY Patient anxious for information regarding the scheduling of his surgery. No complaints of chest pain or pressure, but extremely dyspneic at rest at the start of the shift. This improved throughout the shift. Tele was A Fib 80's-110's overnight. Patient was assisted in the shower this morning, and was feelinf very comfortable after that. Urine yellow/lizabeth in urinal, lasst bowel movement 09/03/19.
[2019-09-04] MEDS ORDERED: Amiodarone HCl200 MG PO (11:11)
[2019-09-04] MEDS ORDERED: TORSE20 PO (11:16)
--- NOTE | 2019-09-04 14:16 | NUR ---
DISCHARGE INSTRUCTIONS COMPLETED AND DISCUSSED WITH PT EXPRESSING UDNERSTANDING. CALLED AND SPOKE WITH MULTIMEDIA TEACHER OFFICE AND RECEIVED INFORMATION ABOUT APPT IN [place] FOR CARIOTHORASIC SURGEON. IT IS WITH SHAE AT 1230 ON SundayAugust. TO [place] VIA W/C WITH FRIEND TO PICK HIM UP.
[2019-09-05] MEDS ORDERED: ONDA4ODT MM (17:20)
[2019-09-05] MEDS ORDERED: Ambien5 MG PO (17:20)
[2019-09-05] MEDS ORDERED: Pepcid20 MG PO (17:20)
== END 2019-09-04 13:09 | disposition home or self-care (01) | DRG 291 ==
LOC: ER 11:02 → MEDS 13:59 → PCU 13:59 → MEDS 09-01 11:13
PROVIDERS: Emergency Medicine; Hospitalist; ADMIT Internal Medicine
DX: I13.0 Hypertensive heart and chronic kidney disease with heart failure and stage 1 through stage 4 chronic kidney disease, or unspecified chronic kidney disease (principal); J96.01 Acute respiratory failure with hypoxia; I50.33 Acute on chronic diastolic (congestive) heart failure; J18.9 Pneumonia, unspecified organism; E87.1 Hypo-osmolality and hyponatremia; N17.9 Acute kidney failure, unspecified; R79.89 Other specified abnormal findings of blood chemistry; I48.0 Paroxysmal atrial fibrillation; I27.20 Pulmonary hypertension, unspecified; N18.3 Chronic kidney disease, stage 3 (moderate); I25.10 Atherosclerotic heart disease of native coronary artery without angina pectoris; I08.3 Combined rheumatic disorders of mitral, aortic and tricuspid valves; E87.5 Hyperkalemia; F17.210 Nicotine dependence, cigarettes, uncomplicated; Z79.82 Long term (current) use of aspirin
CPT/HCPCS: 36415; 71045; 71046; 76705; 80048; 80053; 80074; 83690; 83735; 83880; 84484; 85025; 93005; 93010; 96374; 96375; 97116; 97162; 97530; 99285-25; A9270; C9113; J1940; J2405; J7030

== ENCOUNTER 2019-09-05 14:58 | Emergency (ER) | payer OTHER ==
[~2019-09-05] VITALS: Ht 177.8 cm; Wt 75.8 kg
[~2019-09-05 14:58] MED LIST changes: +Amiodarone HCl200 MG PO; +TORSE20 PO
[2019-09-05 16:09] LABS: BASOPHILS ABSOLUTE AUTO 0.03 K/mm3 (0.00-0.23); BASOPHILS PERCENT AUTO 0 % (0-2); EOSINOPHILS ABSOLUTE AUTO 0.09 K/mm3 (0.00-0.68); EOSINOPHILS PERCENT AUTO 1 % (0-6); Hematocrit 38.9 % (37.0-53.0); Hemoglobin 12.7 g/dL (13.5-17.5); IMMATURE GRAN ABSOLUTE AUTO 0.05 K/mm3 (0.00-0.10); IMMATURE GRAN PERCENT AUTO 1 % (0-1); LYMPHOCYTES PERCENT AUTO 10 % (21-46); MONOCYTES ABSOLUTE AUTO 0.67 K/mm3 (0.16-1.47); MONOCYTES PERCENT AUTO 8 % (4-13); Mean Corpuscular HGB 31.2 pg (26.0-34.0); Mean Corpuscular HGB Conc 32.6 g/dL (31.5-36.5); Mean Corpuscular Volume 96 fL (80-100); Mean Platelet Volume 11.6 fL (9.1-12.4); NEUTROPHILS ABSOLUTE AUTO 6.98 K/mm3 (1.96-9.15); NEUTROPHILS PERCENT AUTO 80 % (41-73); Platelet Count 188 K/mm3 (150-400); RDW Coefficient Variation 14.9 % (11.7-14.2); RDW Standard Deviation 52.5 fL (35.1-46.3); Red Blood Cell Count 4.07 M/mm3 (4.30-5.90); White Blood Cell Count 8.72 K/mm3 (4.00-11.30)
[2019-09-05 16:25] LABS: Albumin, Blood 3.1 g/dL (3.4-5.0); Albumin/Globulin Ratio 0.9 (0.8-1.8); Bilirubin, Total 0.8 mg/dL (0.1-1.0); Bun/Creatinine Ratio 27.3 (12.0-20.0); Calcium, Blood 8.1 mg/dL (8.5-10.1); Creatinine, Blood 1.43 mg/dL (0.60-1.20); Globulin, Blood 3.3 g/dL (2.2-4.0); Potassium, Blood 5.1 mmol/L (3.5-5.5); Total Protein, Blood 6.4 g/dL (6.4-8.2)
[2019-09-05] MEDS ORDERED: ONDA4ODT MM (17:20)
[2019-09-05] MEDS ORDERED: Pepcid20 MG PO (17:20)
[2019-09-05] MEDS ORDERED: Ambien5 MG PO (17:20)
== END 2019-09-05 17:42 | disposition home or self-care (01) ==
LOC: ER 14:58
PROVIDERS: Emergency Medicine
DX: I48.0 Paroxysmal atrial fibrillation (principal); J44.9 Chronic obstructive pulmonary disease, unspecified; I34.0 Nonrheumatic mitral (valve) insufficiency; E87.1 Hypo-osmolality and hyponatremia; R11.2 Nausea with vomiting, unspecified; N28.9 Disorder of kidney and ureter, unspecified; F41.8 Other specified anxiety disorders; R10.13 Epigastric pain; I11.0 Hypertensive heart disease with heart failure; I50.30 Unspecified diastolic (congestive) heart failure; F17.210 Nicotine dependence, cigarettes, uncomplicated; Z79.82 Long term (current) use of aspirin; Z79.899 Other long term (current) drug therapy
CPT/HCPCS: 80053; 85025; 93005; 93010; 96361; 96374; 96375; 99285-25; C9113; J2550; J7030

== ENCOUNTER 2019-09-11 17:21 | Inpatient (IN) | payer OTHER ==
[~2019-09-11] VITALS: Ht 177.8 cm; Wt 85.8 kg
[~2019-09-11 17:21] MED LIST changes: +Ambien5 MG PO; -Amiodarone HCl200 MG PO; +ONDA4ODT MM; +PACERONE100 M1 PO; +Pepcid20 MG PO
[2019-09-11 17:50] LABS: BASOPHILS ABSOLUTE AUTO 0.02 K/mm3 (0.00-0.23); BASOPHILS PERCENT AUTO 0 % (0-2); EOSINOPHILS ABSOLUTE AUTO 0.18 K/mm3 (0.00-0.68); EOSINOPHILS PERCENT AUTO 3 % (0-6); Hematocrit 39.4 % (37.0-53.0); Hemoglobin 12.6 g/dL (13.5-17.5); IMMATURE GRAN ABSOLUTE AUTO 0.05 K/mm3 (0.00-0.10); IMMATURE GRAN PERCENT AUTO 1 % (0-1); LYMPHOCYTES ABSOLUTE AUTO 1.02 K/mm3 (0.84-5.20); LYMPHOCYTES PERCENT AUTO 16 % (21-46); MONOCYTES ABSOLUTE AUTO 0.84 K/mm3 (0.16-1.47); MONOCYTES PERCENT AUTO 13 % (4-13); Mean Corpuscular Volume 97 fL (80-100); Mean Platelet Volume 11.2 fL (9.1-12.4); NEUTROPHILS PERCENT AUTO 67 % (41-73); Platelet Count 198 K/mm3 (150-400); RDW Coefficient Variation 15.2 % (11.7-14.2); RDW Standard Deviation 53.8 fL (35.1-46.3); Red Blood Cell Count 4.07 M/mm3 (4.30-5.90); White Blood Cell Count 6.31 K/mm3 (4.00-11.30)
[2019-09-11 18:07] LABS: Alanine Aminotransfer (ALT/SGP 97 U/L (12-78); Albumin/Globulin Ratio 0.9 (0.8-1.8); Alk Phos 114 U/L (50-136); Anion Gap 7 mmol/L (6-16); Aspartate Aminotrans (AST/SGOT 56 U/L (12-37); Bilirubin, Total 0.5 mg/dL (0.1-1.0); Blood Urea Nitrogen 27 mg/dL (8-24); CO2, Blood 28 mmol/L (21-32); Calcium, Blood 8.2 mg/dL (8.5-10.1); Chloride, Blood 97 mmol/L (98-108); Globulin, Blood 3.3 g/dL (2.2-4.0); Glomerular Filtration Rate 51 (60-); Glucose, Blood 89 mg/dL (70-99); Potassium, Blood 4.3 mmol/L (3.5-5.5); Sodium, Blood 132 mmol/L (136-145); Total Protein, Blood 6.3 g/dL (6.4-8.2); Troponin I <0.015 ng/mL (0.000-0.040)
[2019-09-11] MEDS ORDERED: ZOLP5 PO (19:45)
--- NOTE | 2019-09-11 22:30 | NUR ---
PCU ADMIT PT BROUGHT TO PCU-14 FROM ER BY CELY @ APPROX 2049. PT A&O X4, ABLE TO STAND AND INDEPENDENTLY AMBULATE FROM [facility] TO PCU BED. VSS. MONITOR SHOWS NSR, HR 60's. SPO2 > 92% ON RA, BUT PT PLACED BACK ON PT's REPORTED HOME O2 USE OF 4L NC PER PT REQUEST. PT DENIES SOB, STATING "NO MY BREATHING'S BEEN A LOT BETTER AFTER WEARING THAT BIPAP THEY HAD ME ON." ABD FIRM AND DISTENDED W/ PT REPORT OF "I'VE BEEN HAVING SOME CONSTIPATION OFF AND ON." PT REPORTS LAST BM TODAY. +3 EDEMA NOTED TO BLE. PT REPORTS LASIX RECIEVED IN ER. URINAL AT BEDSIDE. WILL CONTINUE TO MONITOR AND PROVIDE CARE.
[2019-09-12 03:51] LABS: BASOPHILS ABSOLUTE AUTO 0.02 K/mm3 (0.00-0.23); BASOPHILS PERCENT AUTO 0 % (0-2); EOSINOPHILS ABSOLUTE AUTO 0.21 K/mm3 (0.00-0.68); EOSINOPHILS PERCENT AUTO 3 % (0-6); Hematocrit 40.1 % (37.0-53.0); Hemoglobin 12.7 g/dL (13.5-17.5); IMMATURE GRAN ABSOLUTE AUTO 0.03 K/mm3 (0.00-0.10); IMMATURE GRAN PERCENT AUTO 1 % (0-1); LYMPHOCYTES PERCENT AUTO 19 % (21-46); MONOCYTES ABSOLUTE AUTO 0.86 K/mm3 (0.16-1.47); MONOCYTES PERCENT AUTO 14 % (4-13); Mean Corpuscular HGB Conc 31.7 g/dL (31.5-36.5); Mean Corpuscular Volume 98 fL (80-100); NEUTROPHILS ABSOLUTE AUTO 4.05 K/mm3 (1.96-9.15); NEUTROPHILS PERCENT AUTO 64 % (41-73); Platelet Count 171 K/mm3 (150-400); RDW Coefficient Variation 15.4 % (11.7-14.2); RDW Standard Deviation 54.6 fL (35.1-46.3); White Blood Cell Count 6.37 K/mm3 (4.00-11.30)
[2019-09-12 04:12] LABS: Albumin/Globulin Ratio 0.9 (0.8-1.8); Bilirubin, Total 0.5 mg/dL (0.1-1.0); Bun/Creatinine Ratio 16.2 (12.0-20.0); Calcium, Blood 8.3 mg/dL (8.5-10.1); Creatinine, Blood 1.67 mg/dL (0.60-1.20); Globulin, Blood 3.3 g/dL (2.2-4.0); Magnesium, Blood 2.3 mg/dL (1.6-2.4); Potassium, Blood 4.1 mmol/L (3.5-5.5); Total Protein, Blood 6.3 g/dL (6.4-8.2)
--- NOTE | 2019-09-12 05:39 | NUR ---
SHIFT SUMMARY PT A&O X4 W/ EPISODES OF FORGETFULNESS. BP LOW, OTHERWISE VSS. MONITOR SHOWS NSR, HR 60's. SPO2 > 92% ON 4L NC WHICH IS PT's REPORTED HOME O2 USE. ABD FIRM AND DISTENDED. PT W/ BM THIS AM. +3 EDEMA NOTED TO BLE. PT W/ ORDER FOR BEDREST W/ BEDSIDE COMMODE PRIVELEGES PER MD. PT INSTRUCTED TO USE URINAL AT BEDSIDE THOUGH PT REPORTS THIS AM AMBULATING TO BATHROOM AND URINATING IN TOILET. PT REMINDED TO USE URINAL AT BEDSIDE PER BEDREST ORDER & ABILITY TO MEASURE URINE IN URINAL. WILL CONTINUE TO MONITOR & PROVIDE CARE UNTIL REPORT OFF TO DAY SHIFT RN.
--- NOTE | 2019-09-12 15:51 | NUR ---
REPORT CALLED TO AJAY BELL AT [facility]
== END 2019-09-12 15:54 | disposition short-term general hospital (02) | DRG 292 ==
LOC: ER 17:21 → PCU 20:46
PROVIDERS: Emergency Medicine; Nurse Practitioner Acute Care; ADMIT Internal Medicine
DX: I11.0 Hypertensive heart disease with heart failure (principal); J96.11 Chronic respiratory failure with hypoxia; E87.1 Hypo-osmolality and hyponatremia; N17.9 Acute kidney failure, unspecified; Z79.82 Long term (current) use of aspirin; I50.33 Acute on chronic diastolic (congestive) heart failure; Z99.81 Dependence on supplemental oxygen; I34.0 Nonrheumatic mitral (valve) insufficiency; F17.210 Nicotine dependence, cigarettes, uncomplicated; I48.0 Paroxysmal atrial fibrillation; I27.20 Pulmonary hypertension, unspecified; Z90.49 Acquired absence of other specified parts of digestive tract; N18.3 Chronic kidney disease, stage 3 (moderate); R74.0 Nonspecific elevation of levels of transaminase and lactic acid dehydrogenase [LDH]; Z85.819 Personal history of malignant neoplasm of unspecified site of lip, oral cavity, and pharynx; J44.9 Chronic obstructive pulmonary disease, unspecified
CPT/HCPCS: 36415; 71045; 80053; 83735; 83880; 84484; 85025; 93005; 93010; 94660; 96374; 99285-25; A9270; J1940; J2405